=== PATIENT | female | born 1955 | race Hispanic/Latino ===

== ENCOUNTER 2017-02-05 13:02 | Outpatient (CLI) | payer OTHER ==
--- NOTE | 2017-02-05 14:06 | Mammography Report ---
BILATERAL MAMMOGRAM: FINDINGS: The breasts are almost entirely fat (<25% glandular). No mass, distortion, suspicious calcification, or skin change is seen. There are no significant changes compared to January 2016. CAD was utilized. IMPRESSION: Negative mammogram. There is no mammographic evidence of malignancy. RECOMMENDATION: Follow-up per ACS guidelines. BI-RADS CATEGORY: 1 = Negative ACR BI-RADS MAMMOGRAPHIC CODES: 0 = Needs additional imaging evaluation; 1 = Negative; 2 = Benign; 3 = Probably benign; 4 = Suspicious; 5 = Malignant; 6 = Known biopsy-proven malignancy COMMENT: 1. Dense breast tissue, i.e., adenosis, fibrocystic changes, etc., may obscure an underlying neoplasm. 2. Approximately 10% of cancers are not detected with mammography. 3. A negative mammography report should not delay biopsy if a clinically suspicious mass is present. COMMENT: Patient follow-up letters are generated in [employer].
== END 2017-02-05 13:03 | disposition home or self-care (01) ==
LOC: SPVWC 13:02
PROVIDERS: ATTEND Obstetrics & Gynecology
DX: Z12.31 Encounter for screening mammogram for malignant neoplasm of breast (principal)
CPT/HCPCS: 77067; G0202

== ENCOUNTER 2018-03-11 09:29 | Outpatient (CLI) | payer OTHER ==
--- NOTE | 2018-03-11 16:19 | Mammography Report ---
BILATERAL DIGITAL SCREENING MAMMOGRAM with CAD: 03/11/18 09:29:00 CLINICAL: Routine screening. COMPARISON:02/05/17 FINDINGS: The breasts are almost entirely fatty. No mass, architectural distortion or suspicious calcifications. IMPRESSION: No mammographic evidence of malignancy. BI-RADS CATEGORY: 1 - - Negative RECOMMENDATION: Routine mammographic screening in one year. COMMENT: Patient follow-up letters are generated by our [employer] application.
== END 2018-03-11 09:30 | disposition home or self-care (01) ==
LOC: SPVWC 09:29
PROVIDERS: ATTEND Obstetrics & Gynecology
DX: Z12.31 Encounter for screening mammogram for malignant neoplasm of breast (principal)
CPT/HCPCS: 77067

== ENCOUNTER 2019-06-30 10:42 | Outpatient (CLI) | payer OTHER ==
--- NOTE | 2019-07-01 11:00 | Mammography Report ---
DIGITAL SCREENING MAMMOGRAM WITH CAD, 06/30/2019 INDICATION: Routine screening mammography. TECHNIQUE: Digital bilateral 2D mammography was obtained in the craniocaudal and mediolateral obliq ue projections. This examination was interpreted with the benefit of Computer-Aided Detection analysi s. COMPARISON: 03/11/2018 FINDINGS: Breast Density: The breasts are almost entirely fatty. There is no evidence of dominant mass, suspicious calcifications or architectural distortion in eithe r breast. IMPRESSION: No mammographic evidence of malignancy. Follow up recommendation: Routine yearly BI-RADS Category 1: Negative. A "normal" or negative report should not discourage follow up or biopsy of a clinically significant f inding. A written summary of these findings will be mailed to the patient. The patient will be entered into a mammography reporting system which will generate a reminder letter for the patient's next appointmen t at the appropriate interval. The [employer] recommends yearly mammograms starting at age 40 and continuing as l [place] as a woman is in good health. Breast MRI is recommended for women with an approximate 20-25% or greater lifetime risk of breast cancer, including women with a strong family history of breast or ova trent cancer or who have been treated for Hodgkin's disease. Signer Name: Marcell Claire MD Signed: 07/01/2019 10:56 AM Workstation Name: [id number]
== END 2019-06-30 10:43 | disposition home or self-care (01) ==
LOC: SPVWC 10:42
PROVIDERS: ATTEND Obstetrics & Gynecology
DX: Z12.31 Encounter for screening mammogram for malignant neoplasm of breast (principal)
CPT/HCPCS: 77067

== ENCOUNTER 2020-07-20 08:00 | Outpatient (CLI) | payer MEDICARE ==
--- NOTE | 2020-07-23 08:22 | Mammography Report ---
DIGITAL SCREENING MAMMOGRAM WITH TOMOSYNTHESIS WITH CAD, 07/22/2020 INDICATION: Routine Screening Mammography. SCREENING TECHNIQUE: Digital bilateral 2D and 3D mammography with tomosynthesis was obtained in the craniocau alex and mediolateral oblique projections. Computer-Aided Detection (CAD) analysis was used for inter pretation of this study. COMPARISON: 06/30/2019. FINDINGS: Breast Density: There are scattered areas of fibroglandular density. There is no evidence of dominant mass, suspicious calcifications or architectural distortion in eithe r breast. IMPRESSION: Follow up recommendation: Routine yearly BI-RADS Category 1: Negative. A "normal" or negative report should not discourage follow up or biopsy of a clinically significant f inding. A written summary of these findings will be mailed to the patient. The patient will be entered into a mammography reporting system which will generate a reminder letter for the patient's next appointmen t at the appropriate interval. The [employer] recommends yearly mammograms starting at age 40 and continuing as l [place] as a woman is in good health. Breast MRI is recommended for women with an approximate 20-25% or greater lifetime risk of breast cancer, including women with a strong family history of breast or ova trent cancer or who have been treated for Hodgkin's disease. Signer Name: Teddy Miner MD Signed: 07/23/2020 8:18 AM Workstation Name: [id number]
== END 2020-07-20 08:01 | disposition home or self-care (01) ==
LOC: SPVWC 08:00
PROVIDERS: ATTEND Obstetrics & Gynecology
DX: Z12.31 Encounter for screening mammogram for malignant neoplasm of breast (principal)
CPT/HCPCS: 77067